=== PATIENT | male | born 1985 | race Two or more races ===

== ENCOUNTER 2020-04-29 09:00 | Emergency (ER) | payer OTHER, SELFPAY ==
[2020-04-29 09:44] VITALS: BP 167/91; PULSE 80; RESP 16; TEMP 37.1; O2SAT 98; BMI 39.1
--- NOTE | 2020-04-29 09:54 | ED.LOWEXIN ---
HPI - Extremity Injury (Lower) General Chief Complaint: Extremity Injury, Lower Stated Complaint: KNEE PAIN Time Seen by Provider: 04/29/20 09:45 Source: patient Mode of arrival: ambulatory History of Present Illness HPI Narrative: 35 y.o. male otherwise healthy not on daily medications presenting to the emergency department with left knee pain. Patient states he was at work getting out of his truck when he went to go step down step and felt like he was going to fall so he went go catch himself and twisted the left knee. Denies actual fall. He denies head injury. He states it is also painful to the lateral and posterior aspect of his knee that radiates up into her left buttock. He states did not pain prior to this injury. Injury occurred at 07:30 this morning. He denies history of DVT or PE. He denies head injury, chest pain, shortness of breath, abdominal pain, back pain, no paresthesias reported. MD complaint: knee injury Injury: Left: knee Place: work Severity: moderate Related Data Previous Rx's Medication Instructions Recorded ibuprofen 600 mg PO Q6H PRN 5 Days #20 tab 04/29/20 Allergies Allergy/AdvReac Type Severity Reaction Status Date / Time Penicillins Allergy Swelling Verified 04/29/20 09:43 Review of Systems Constitutional: Constitutional: Denies fever(s) Eyes: Eyes: Reports no additional eye complaints ENT: Denies neck pain Cardiovascular: Cardiovascular: Denies chest pain, Denies syncope and Denies dyspnea Respiratory: Respiratory: Denies dyspnea Gastrointestinal: Gastrointestinal: Denies abdominal pain Genitourinary: Comments: No incontinence Musculoskeletal: Musculoskeletal: Denies neck pain Comments: left knee pain Neurologic: Denies syncope Psychiatric: Psychiatric: Reports no additional psychiatric complaints Hematologic/Lymphatic: Hematologic/Lymphatic: Reports no additional hematologic/lymphatic complaints Allergic/Immunologic: Allergic/Immunologic: Reports no additional allergic/immunologic complaints PMF Past Medical History Medical History No known health problems Social History Social History Smoked in Last 30 Days: No Use of substances other than those prescribed or required for medical reasons: No Advance Directives: No Advance Directives Information Provided: Yes Current occupational status: employed Current occupation: government program manager Physical Exam Vital Signs: Vital Signs: Last Vital Signs Temp 98.8 F 04/29/20 09:44 Pulse 80 04/29/20 09:44 Resp 16 04/29/20 09:44 BP 167/91 H 04/29/20 09:44 Pulse Ox 98 04/29/20 09:44 Body Mass Index 39.1 Const: Other: sitting upright General: cooperative HENMT: Head: Yes atraumatic Eyes: Pupils: Equal, round and reactive pupils present EOM: EOMs intact bilaterally Neck: Neck: Yes full ROM, Yes trachea midline and Yes supple Chest: Chest palpation & inspection: normal inspection of the chest Resp: Effort & Inspection: normal respiratory effort and able to speak in complete sentences Cardio: Rate: regular rate GI: Inspection: No distended Palpation (GI): no guarding Back/Spine/Pelvis: Other: normal ROM Skin: Other: warm, dry Neuro: Other: A&O x4, nonfocal neurological exam Cranial nerves: Yes Equal, round and reactive pupils present Extrem: Other: LLE- + pedal pulse, full ROM of digits, ankle, able to range 90 degrees at the knee, able to fully extend, mild swelling to suprapatellar region, no open wounds, varicose veins noted to calf, no calf tenderness or edema, no tenderness to palpation of hip or knee, compartments soft, neurovasculalrly intact Psych: Appearance: well kempt MDM - Extremity Injury (Lower) MDM Narrative Medical decision making narrative: 35-year-old male presenting to the emergency department with left knee pain while twisting getting off of his truck Vital significant for hypertension most likely secondary to pain and has no known history of hypertension, otherwise hemodynamically stable and nontoxic appearing Will plan for a plain film of his knee to rule out bony injury. Patient denies any pain prior to the injury there or DVT is less likely. He has no other skin changes to suggest a septic joint. No evidence of cellulitis. His compartments are soft. No evidence of necrotizing fasciitis. Pain does not radiate from, denies back pain. No red flags for cord compression. Or ligamentous injury is a possibility given his twisting motion, will give him a knee immobilizer and crutches and ortho follow-up if x-ray is negative. Will give Tylenol Motrin for pain. Discharge Plan Discharge Clinical Impression: Knee sprain Patient Disposition: Home, Self-Care Instructions: Knee Pain (ED), R.I.C.E. Treatment (ED), Knee Immobilizer (ED) Additional Instructions: You were seen in the emergency department for knee pain. Your x-ray was negative. Please follow-up with orthopedist. He may use the knee immobilizer when walking, use crutches for weight-bearing as tolerated. Please return to the emergency department for symptoms worsen, worsening pain, swelling, difficulty walking, recurrent falls, numbness, tingling, or any other concerning symptoms. You may take tylenol or motrin as directed for pain. Prescriptions: New ibuprofen 600 mg tablet 600 mg PO Q6H PRN (Reason: pain) 5 Days Qty: 20 RF: 0 Referrals: Nishant Pederson MD [Physician] - 1 week (for re-evaluation of your sprained knee ) Interventions: ED Discharge Assessment Last Done: 04/29/20 11:27 Discharge Date/Time: 04/29/20 11:28
--- NOTE | 2020-04-29 10:06 | XR_ITS ---
EXAMINATION: XR KNEE, LEFT CLINICAL INFORMATION: Twisted knee COMPARISON: None TECHNIQUE: Four views of the left knee. FINDINGS: Bones and soft tissues are normal. No fracture or joint effusion. Alignment is anatomic. Joint spaces are well maintained. No abnormal soft tissue calcification. XR/XR knee LT 3V IMPRESSION: Normal left knee.
[2020-04-29] MEDS: Ibuprofen 600 MG TABLET PO (10:30)
[2020-04-29] MEDS: Acetaminophen 325 MG TABLET 650 MG PO (10:30)
== END 2020-04-29 11:28 | disposition home or self-care (01) ==
PROVIDERS: Emergency Provider Emergency Medicine Emergency Medical Services
DX: S83.92XA Sprain of unspecified site of left knee, initial encounter (principal); M25.562 Pain in left knee; X50.1XXA Overexertion from prolonged static or awkward postures, initial encounter; Y93.01 Activity, walking, marching and hiking; Y92.9 Unspecified place or not applicable; Y99.9 Unspecified external cause status
CPT/HCPCS: 73562; 99283

== ENCOUNTER → 2020-04-30 12:47 | Outpatient (BNVA) | payer OTHER, SELFPAY | PROVIDERS: Visit Provider Physician Assistant | DX: S83.92XA Sprain of unspecified site of left knee, initial encounter (principal) | CPT/HCPCS: 99202 ==